=== PATIENT | female | born 1965 | race Caucasian/White ===

== ENCOUNTER 2022-11-21 12:23 | Emergency (ER) | payer SELFPAY ==
[~2022-11-21] VITALS: Ht 152.4 cm; Wt 45.5 kg
[2022-11-21 12:34] VITALS: TEMP 98.1
[2022-11-21 15:03] VITALS: BP 101/55; PULSE 54
== END 2022-11-21 15:03 | disposition home or self-care (01) ==
LOC: COL.ER 12:23
DX: M54.50 Low back pain, unspecified (principal); R10.9 Unspecified abdominal pain; K59.00 Constipation, unspecified; R12 Heartburn; Z28.310 Unvaccinated for COVID-19; Z98.890 Other specified postprocedural states; X50.0XXA Overexertion from strenuous movement or load, initial encounter
CPT/HCPCS: J1885

== ENCOUNTER 2024-02-17 21:32 | Emergency (ER) | payer OTHER ==
[~2024-02-17] VITALS: Ht 152.4 cm; Wt 48.5 kg
[2024-02-17] MEDS ORDERED: Home LORazepam 0.5 MG #3 TAB/PACK PO ONE (23:45)
[2024-02-17] MEDS ORDERED: LORazepam 0.5 MG TAB PO ONE (23:45)
[2024-02-17] MEDS ORDERED: LEXAPRO 10MG10 MG PO (23:51)
[2024-02-18 00:04] VITALS: BP 121/72; PULSE 68; TEMP 98.3
== END 2024-02-18 00:11 | disposition home or self-care (01) ==
LOC: COL.ER 21:32
DX: G47.00 Insomnia, unspecified (principal); F41.9 Anxiety disorder, unspecified

== ENCOUNTER → 2024-04-17 | Outpatient (CLI) | payer OTHER ==
[~2024-04-17] MED LIST: LEXAPRO 10MG10 MG PO
== END ==
LOC: MC.RAD 09:40
DX: Z12.31 Encounter for screening mammogram for malignant neoplasm of breast (principal)